=== PATIENT | female | born 1990 | race African-American/Black ===

== ENCOUNTER 2018-08-13 09:44 | Emergency (ER) | payer BC ==
[~2018-08-13] VITALS: Ht 170.2 cm; Wt 68.0 kg
[2018-08-13 09:57] VITALS: Ht 170.2 cm; Wt 68.0 kg
[2018-08-13 11:51] LABS: BASOPHIL % 0.2 % (0-2); PLATELET COUNT 242 x10^3mcL (130-400); RED CELL DISTRIBUTION WIDTH 13.9 % (11.5-14.5)
[2018-08-13 12:38] VITALS: BP 125/61
== END 2018-08-13 14:39 | disposition home or self-care (01) ==
LOC: ED 09:44
PROVIDERS: Emergency Medicine
DX: O20.0 Threatened abortion (principal); Z3A.01 Less than 8 weeks gestation of pregnancy
CPT/HCPCS: 36415